=== PATIENT | female | born 1980 | race American Indian/Alaskan Native ===

== ENCOUNTER 2020-04-01 16:10 | Emergency (ER) | payer SELFPAY ==
[2020-04-01 18:31] VITALS: BP 123/64
--- NOTE | 2020-04-01 19:31 | Emergency Department Report ---
Chief Complaint: Upper Respiratory Infection Stated Complaint: CHEST PRESSURE/COUGH Time Seen by Provider: 04/01/20 19:26 - HPI History of Present Illness: Patient is a 39-year-old female presents emergency room with complaints of a dry cough that began 2 days ago. She states that she has chest discomfort after frequent coughing. She denies any nausea, vomiting, diarrhea, fever, sore throat, ear pain, shortness of breath, pleuritic chest pain. 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 She denies any recent travel. No past medical history. No allergies to medications. Vitals are normal On exam: Non toxic appearing, no acute distress atraumatic, normocephalic normal appearance of the eyes, PERRL, EOMI, no periorbital edema or ecchymosis moist mucus membranes, normal oropharynx, normal TMs and canals bilaterally regular heart rate and rhythm, no gallops, no rubs, no murmurs breath sounds are clear bilaterally, no w/r/r, no stridor, no respiratory distress, no accessory muscle use A&O x4, no focal neuro deficit skin is warm, dry, intact Patient is presenting to the emergency room for viral URI symptoms that have only been going on for 2 days She has not taken anything for her symptoms Breath sounds are clear bilaterally, no wheezing, no rales, no rhonchi Her vitals are normal No clinical signs of bacterial pneumonia or bacterial bronchitis She has no clinical signs of dehydration Patient is presenting with the symptoms during a COVID-19 pandemic, discussed COVID-19 with patient, discussed strict return precautions, discussed outpatient testing, discussed self quarantine Discussed supportive care and symptomatic treatment with patient Patient given appropriate resources discussed very strict return precautions Medical screening examination performed and there is no threat to life or limb at this time - Exam Vital Signs: Vital Signs 04/01/20 18:30 Temperature 98.2 F Pulse Rate 66 Respiratory 22 Rate Blood Pressure 123/64 [Right] O2 Sat by Pulse 100 Oximetry MSE screening note: Focused history and physical exam performed. Due to findings the following was ordered: ED Disposition for MSE Clinical Impression: Viral URI with cough Disposition: MED SCREENING EXAM-LEFT Is pt being admited?: No Does the pt Need Aspirin: No Condition: Stable Instructions: Viral Respiratory Infection, [id number]-Ohrf, COVID-19 Additional Instructions: Please increase your fluid intake over the next several days. May take Tylenol as needed for fever or body aches. May take jxjj-jks-wjafyyy cold symptom relief medication such as Mucinex or TheraFlu. Follow-up with a primary care doctor for reexamination. Return to emergency room immediately for any new or worsening symptoms including but not limited to difficulty breathing, shortness of breath, severe chest pain, unable to tolerate by mouth intake, etc. Please self quarantine for 2 weeks from the onset of your symptoms. Please do not go out in public. If you are around others at home please wear a mask. If you need to cough or sneeze please do so in a napkin and immediately throw it away and immediately wash your hands. Wash your hands frequently. Wipe everything down. Recommend for you to get COVID-19 testing, may have this done at primary care doctor, health department, [facility] testing center. Referrals: KHALIDA FRENCH MD [Staff Physician] - 2-3 Days [facility] [Provider Group] - 2-3 Days Forms: Work/School Release Form(ED) Time of Disposition: 19:30 Print Language: TURKISH
== END 2020-04-01 20:16 | disposition left against medical advice (07) ==
LOC: ED 16:10
DX: R05 Cough (principal); Z53.21 Procedure and treatment not carried out due to patient leaving prior to being seen by health care provider

== ENCOUNTER 2020-11-10 08:50 | Emergency (ER) | payer MEDICAID ==
[2020-11-10 10:05] LABS: Basophils # (Auto) 0.1 K/mm3 (0.0-0.1); Basophils % (Auto) 0.5 % (0.0-1.8); Eosinophils # (Auto) 0.1 K/mm3 (0.0-0.4); Eosinophils % (Auto) 0.5 % (0.0-4.3); Hematocrit 32.4 % (30.3-42.9); Hemoglobin 10.3 gm/dl (10.1-14.3); Lymphocytes # (Auto) 2.4 K/mm3 (1.2-5.4); Lymphocytes % (Auto) 17.5 % (13.4-35.0); Mean Corpuscular HGB Conc 32 % (30-34); Mean Corpuscular Volume 72 fl (79-97); Monocytes # (Auto) 1.2 K/mm3 (0.0-0.8); Platelet Count 280 K/mm3 (140-440); Red Blood Count 4.49 M/mm3 (3.65-5.03)
[2020-11-10 10:15] LABS: INR 1.07 (0.87-1.13)
[2020-11-10 10:16] LABS: Partial Thromboplastin Time 34.7 Sec. (24.2-36.6); Red Cell Distribution Width 20.2 % (13.2-15.2)
[2020-11-10 10:24] VITALS: BP 133/71
--- NOTE | 2020-11-10 10:25 | Emergency Department Report ---
ED HPI - General Chief complaint: Vaginal Bleeding Stated complaint: 9 WEEKS / BLEEDING Time Seen by Provider: 11/10/20 09:40 Source: patient Mode of arrival: Ambulatory Limitations: No Limitations - History of Present Illness Initial comments: This is a 40-year-old female nontoxic, well nourished in appearance, no acute signs of distress presents to the ED with c/o of vaginal bleeding x1 day. Patient stated yesterday she noticed some spotting this morning x3 occasions and primarily only when she wipes after the restroom. Patient denies any abdominal or pelvic pain. Patient denies any vaginal discharge or foul odor. Patient denies any nausea, vomiting, chest pain, shortness of breathe, fever, chills, headache, stiff neck, numbness, tingling. Patient denies any urinary symptoms. Patient denies any allergies or PMH. -: days(s) Severity scale (0 -10): 0 Improves with: none Worsens with: none Associated symptoms: vaginal discharge. denies: nausea/vomiting, vaginal bleeding, abdominal pain, dysuria, headache, vision changes, malaise, dysparuenia, rash, seizure, shortness of breath, syncope, weakness Vaginal bleeding: light :: Yes Number of weeks : 9 Pre-leigh ann care: none - Related Data Previous Rx's Medication Instructions Recorded Last Taken Type 21/Iron Fu/Folic Acid 1 each PO DAILY #30 tablet 11/10/20 Unknown Rx [ Complete Caplet] Allergies Allergy/AdvReac Type Severity Reaction Status Date / Time No Known Allergies Allergy Verified 11/10/20 09:05 ED Review of Systems ROS: Stated complaint: 9 WEEKS / BLEEDING Other details as noted in HPI Comment: All other systems reviewed and negative Constitutional: denies: chills, fever Eyes: denies: eye pain, eye discharge, vision change ENT: denies: ear pain, throat pain Respiratory: denies: cough, shortness of breath, wheezing Cardiovascular: denies: chest pain, palpitations Endocrine: no symptoms reported Gastrointestinal: denies: abdominal pain, nausea, diarrhea Genitourinary: abnormal menses. denies: urgency, dysuria, frequency, hematuria, discharge, dyspareunia Musculoskeletal: denies: back pain, joint swelling, arthralgia Skin: denies: rash, lesions Neurological: denies: headache, weakness, paresthesias Psychiatric: denies: anxiety, depression Hematological/Lymphatic: denies: easy bleeding, easy bruising ED Past Medical Hx - Past Medical History Previous Medical History?: No - Surgical History Additional Surgical History: C SECTION - Social History Smoking Status: Never Smoker Substance Use Type: None - Medications Home Medications: Home Medications Medication Instructions Recorded Confirmed Last Taken Type 21/Iron Fu/Folic Acid 1 each PO DAILY #30 tablet 11/10/20 Unknown Rx [ Complete Caplet] ED Physical Exam - General Limitations: No Limitations General appearance: alert, in no apparent distress - Head Head exam: Present: atraumatic, normocephalic - Eye Eye exam: Present: normal appearance - Neck Neck exam: Present: normal inspection, full ROM. Absent: lymphadenopathy - Respiratory Respiratory exam: Absent: respiratory distress - Cardiovascular Cardiovascular Exam: Present: regular rate - GI/Abdominal GI/Abdominal exam: Present: soft, normal bowel sounds. Absent: distended, tenderness, guarding, rebound, rigid, diminished bowel sounds - Extremities Exam Extremities exam: Present: full ROM - Back Exam Back exam: Present: normal inspection, full ROM. Absent: tenderness, CVA tenderness (R), CVA tenderness (L), muscle spasm, paraspinal tenderness, vertebral tenderness, rash noted - Neurological Exam Neurological exam: Present: alert, oriented X3, normal gait - Psychiatric Psychiatric exam: Present: normal affect, normal mood - Skin Skin exam: Present: warm, dry, intact, normal color. Absent: rash ED Course Vital Signs 11/10/20 09:10 Temperature 98.2 F Pulse Rate 77 Respiratory 20 Rate Blood Pressure 133/71 O2 Sat by Pulse 97 Oximetry Vital Signs 11/10/20 09:10 Temperature 98.2 F Pulse Rate 77 Respiratory 20 Rate Blood Pressure 133/71 O2 Sat by Pulse 97 Oximetry - Reevaluation(s) Reevaluation #1: 11/10/20 10:25 Patient is speaking in full sentences with no signs of distress noted. ED Medical Decision Making - Lab Data Result diagrams: 11/10/20 09:47 Lab Results 11/10/20 11/10/20 11/10/20 Range/Units 09:47 09:47 09:47 WBC 13.6 H (4.5-11.0) K/mm3 RBC 4.49 (3.65-5.03) M/mm3 Hgb 10.3 (10.1-14.3) gm/dl Hct 32.4 (30.3-42.9) % MCV 72 L (79-97) fl MCH 23 L (28-32) pg MCHC 32 (30-34) % RDW 20.2 H (13.2-15.2) % Plt Count 280 (140-440) K/mm3 Lymph % (Auto) 17.5 (13.4-35.0) % [place] % (Auto) 9.0 H (0.0-7.3) % Eos % (Auto) 0.5 (0.0-4.3) % Baso % (Auto) 0.5 (0.0-1.8) % Lymph # (Auto) 2.4 (1.2-5.4) K/mm3 [place] # (Auto) 1.2 H (0.0-0.8) K/mm3 Eos # (Auto) 0.1 (0.0-0.4) K/mm3 Baso # (Auto) 0.1 (0.0-0.1) K/mm3 Seg Neutrophils % 72.5 H (40.0-70.0) % Seg Neutrophils # 9.8 H (1.8-7.7) K/mm3 PT 14.4 (12.2-14.9) Sec. INR 1.07 (0.87-1.13) APTT 34.7 (24.2-36.6) Sec. HCG, Quant 10541 H (0-4) mIU/mL Urine Color (Yellow) Urine Turbidity (Clear) Urine pH (5.0-7.0) Ur Specific [place] (1.003-1.030) Urine Protein (Negative) mg/dL Urine Glucose (UA) (Negative) mg/dL Urine Ketones (Negative) mg/dL Urine Blood (Negative) Urine Nitrite (Negative) Urine Bilirubin (Negative) Urine Urobilinogen (<2.0) mg/dL Ur Leukocyte Esterase (Negative) Urine WBC (Auto) (0.0-6.0) /HPF Urine RBC (Auto) (0.0-6.0) /HPF U Epithel Cells (Auto) (0-13.0) /HPF Urine Bacteria (Auto) (Negative) /HPF Blood Type Antibody Screen Antibody Identification Ord Rhogam Gestat Weeks WEEKS 07/11/21 07/11/21 Range/Units 09:47 11:32 WBC (4.5-11.0) K/mm3 RBC (3.65-5.03) M/mm3 Hgb (10.1-14.3) gm/dl Hct (30.3-42.9) % MCV (79-97) fl MCH (28-32) pg MCHC (30-34) % RDW (13.2-15.2) % Plt Count (140-440) K/mm3 Lymph % (Auto) (13.4-35.0) % [place] % (Auto) (0.0-7.3) % Eos % (Auto) (0.0-4.3) % Baso % (Auto) (0.0-1.8) % Lymph # (Auto) (1.2-5.4) K/mm3 [place] # (Auto) (0.0-0.8) K/mm3 Eos # (Auto) (0.0-0.4) K/mm3 Baso # (Auto) (0.0-0.1) K/mm3 Seg Neutrophils % (40.0-70.0) % Seg Neutrophils # (1.8-7.7) K/mm3 PT (12.2-14.9) Sec. INR (0.87-1.13) APTT (24.2-36.6) Sec. HCG, Quant (0-4) mIU/mL Urine Color Yellow (Yellow) Urine Turbidity Clear (Clear) Urine pH 6.0 (5.0-7.0) Ur Specific [place] 1.013 (1.003-1.030) Urine Protein <15 mg/dl (Negative) mg/dL Urine Glucose (UA) Neg (Negative) mg/dL Urine Ketones Tr (Negative) mg/dL Urine Blood Mod (Negative) Urine Nitrite Neg (Negative) Urine Bilirubin Neg (Negative) Urine Urobilinogen < 2.0 (<2.0) mg/dL Ur Leukocyte Esterase Lg (Negative) Urine WBC (Auto) 6.0 (0.0-6.0) /HPF Urine RBC (Auto) 2.0 (0.0-6.0) /HPF U Epithel Cells (Auto) 9.0 (0-13.0) /HPF Urine Bacteria (Auto) 1+ (Negative) /HPF Blood Type O NEGATIVE Antibody Screen Positive Antibody Identification Anti-D (Actively Aquired) Ord Rhogam Gestat Weeks <11 WEEKS - Radiology Data [facility] [address] [place] [address] Ultrasound Report Signed Patient: PAULINA VELASCO MR#: [id number] : 1980 Acct:[id number] Age/Sex: 40 / F ADM Date: 11/10/20 Loc: ED Attending Dr: Ordering Physician: KAREN WATTERS NP Date of Service: 11/10/20 Procedure(s): US OB <= 14 weeks fetus Accession Number(s): [id number] cc: KAREN WATTERS NP Pelvic Ultrasound HISTORY: vaginal bleeding. TECHNIQUE: Grayscale and color imaging performed. COMPARISON: None FINDINGS: Uterus measures 10.7 x 6.0 x 6.2 cm. There is an intrauterine gestational sac a small yolk sac and pole. [place]-rump length is 16 mm which corresponds with an EGA of 8 weeks 0 days and delivery date of 06/22/2021. heart rate is 160 bpm. Left ovary is not visualized. Right ovary contains a small likely functional cyst measuring 8 mm. No significant pelvic free fluid. IMPRESSION: 1. Single viable intrauterine gestation as above. 2. Nonvisualization of the left ovary. Signer Name: Delvin Julien MD Signed: 11/10/2020 1:04 PM Workstation Name: [id number] Transcribed By: Dictated By: Delvin Julien MD Electronically Authenticated By: Delvin Julien MD Signed Date/Time: 11/10/20 1304 DD/ 1303 TD/TT: - Medical Decision Making This is a 40-year-old female presents with threatened miscarriage. Patient is stable and was examined by me. Normal abdominal exam. US OB obtained and dictated by the radiologist. Ua obtained. Quantative serum test obtained. Patient notified of the US report with no questions noted by the patient. Patient was instructed f/u with [facility] in 3-5 days. RH factor negative and received rhogam. Labs within normal limits. At time of discharge, the patient does not seem toxic or ill in appearance. No acute signs of distress noted. Patient agrees to discharge treatment plan of care. No further questions noted by the patient. Critical care attestation.: If time is entered above; I have spent that time in minutes in the direct care of this critically ill patient, excluding procedure time. ED Disposition Clinical Impression: Threatened miscarriage, Need for rhogam due to Rh negative mother Disposition: DC-01 TO HOME OR SELFCARE Is pt being admited?: No Does the pt Need Aspirin: No Condition: Stable Instructions: Threatened Miscarriage Additional Instructions: Follow-up with a OBGYN doctor in 3-5 days or if symptoms worsen and continue return to emergency room as soon as possible. Prescriptions: 21/Iron Fu/Folic Acid [ Complete Caplet] 1 each PO DAILY #30 tablet Referrals: PRIMARY CAREMD [Primary Care Provider] - 3-5 Days [facility] [Provider Group] - 3-5 Days [facility] [Provider Group] - 3-5 Days Forms: Work/School Release Form(ED) Time of Disposition: 13:13
[2020-11-10 12:25] LABS: Bacteria,Urine 1+ /HPF (Negative); Bilirubin,Urine NEG (Negative); Blood,Urine MOD (Negative); Color,Urine Yellow (Yellow); Protein,Urine <15 mg/dL mg/dL (Negative); Urobilinogen,Urine < 2.0 mg/dL (<2.0)
--- NOTE | 2020-11-10 13:09 | Ultrasound Report ---
Pelvic Ultrasound HISTORY: vaginal bleeding. TECHNIQUE: Grayscale and color imaging performed. COMPARISON: None FINDINGS: Uterus measures 10.7 x 6.0 x 6.2 cm. There is an intrauterine gestational sac a small yolk sac and pole. [place]-rump length is 16 mm which corresponds with an EGA of 8 weeks 0 days and [place] date of 06/22/2021. heart rate is 160 bpm. Left ovary is not visualized. Right ovary contains a small likely functional cyst measuring 8 mm. No significant pelvic free fluid. IMPRESSION: 1. Single viable intrauterine gestation as above. 2. Nonvisualization of the left ovary. Signer Name: Delvin Julien MD Signed: 11/10/2020 1:04 PM Workstation Name: [id number]
== END 2020-11-10 13:45 | disposition home or self-care (01) ==
LOC: ED 08:50
DX: O20.0 Threatened abortion (principal); O26.891 Other specified pregnancy related conditions, first trimester; Z98.890 Other specified postprocedural states; Z3A.09 9 weeks gestation of pregnancy; Z67.41 Type O blood, Rh negative
CPT/HCPCS: 36415; 76801; 81001; 84702; 85025; 85610; 85730; 86850; 86870; 86900; 86901; 96372; 99284; J2790; 36430

== ENCOUNTER 2021-03-26 08:46 | Outpatient (CLI) | payer MEDICAID | END 2021-03-26 08:47 | disposition home or self-care (01) | LOC: LAB 08:46 | PROVIDERS: ATTEND Obstetrics & Gynecology | DX: O09.523 Supervision of elderly multigravida, third trimester (principal); Z3A.29 29 weeks gestation of pregnancy | CPT/HCPCS: 86850; 86870; 86900; 86901; 96372; J2790 ==

== ENCOUNTER 2021-06-02 10:30 | Outpatient (CLI) | payer MEDICAID ==
[2021-06-02] MEDS ORDERED: LACTATED RINGERS 500 ML IV ONE (11:00)
[2021-06-02 12:21] LABS: Hematocrit 30.7 % (30.3-42.9); Hemoglobin 9.6 gm/dl (10.1-14.3); Mean Corpuscular HGB Conc 31 % (30-34); Mean Corpuscular Volume 74 fl (79-97); Platelet Count 206 K/mm3 (140-440); Red Blood Count 4.12 M/mm3 (3.65-5.03); Red Cell Distribution Width 18.1 % (13.2-15.2)
[2021-06-02 12:23] LABS: Bilirubin,Urine NEG (Negative); Blood,Urine NEG (Negative); Color,Urine Yellow (Yellow); Protein,Urine <15 mg/dL mg/dL (Negative)
[2021-06-02 12:32] LABS: RBC,Urine < 1.0 /HPF (0.0-6.0); WBC,Urine < 1.0 /HPF (0.0-6.0)
[2021-06-02] MEDS ORDERED: LACTATED RINGERS 1,000 ML IV ONE (12:42)
[2021-06-02 12:43] LABS: Alanine Aminotransferase 9 units/L (7-56); Uric Acid 5.2 mg/dL (3.5-7.6)
[2021-06-02] MEDS ORDERED: D5W/LACTATED RINGERS 1,000 ML IV SCH (13:00)
--- NOTE | 2021-06-02 13:28 | Ultrasound Report ---
ULTRASOUND OBSTETRIC LIMITED ULTRASOUND BIOPHYSICAL PROFILE INDICATION / CLINICAL INFORMATION: Evaluate well-being. COMPARISON: None available. FINDINGS: BREATHING MOVEMENT = 2 GROSS BODY MOVEMENT = 2 TONE = 2 QUALITATIVE AMNIOTIC FLUID VOLUME = 2 TOTAL BIOPHYSICAL SCORE = 8/8 AMNIOTIC FLUID INDEX (cm) = 11.1 PRESENTATION: Cephalic. HEART RATE (beats per minute): 132 ADDITIONAL FINDINGS: None. IMPRESSION: 1. Biophysical Score = 8/8 2. Normal amniotic fluid index of 11.1 cm. Signer Name: Cyrus Cao MD Signed: 06/02/2021 1:23 PM Workstation Name: [id number]
[2021-06-02 14:32] VITALS: BP 104/59
== END 2021-06-02 15:09 | disposition home or self-care (01) ==
LOC: TRG 10:30 → APU 10:31 → TRG 15:09
PROVIDERS: ATTEND Obstetrics & Gynecology
DX: O62.9 Abnormality of forces of labor, unspecified (principal); O26.893 Other specified pregnancy related conditions, third trimester; R10.9 Unspecified abdominal pain; Z3A.36 36 weeks gestation of pregnancy
CPT/HCPCS: 36415; 59025; 76815; 76819; 81001; 82565; 83615; 84450; 84460; 84550; 85027; 96360; 96361; J7121; Q0177; J7060

== ENCOUNTER 2021-06-08 02:54 | Outpatient (CLI) | payer MEDICAID ==
[2021-06-08 03:21] VITALS: BP 124/75
[2021-06-08 03:32] LABS: Bilirubin,Urine NEG (Negative); Blood,Urine NEG (Negative); Color,Urine Yellow (Yellow); Protein,Urine <15 mg/dL mg/dL (Negative); Urobilinogen,Urine < 2.0 mg/dL (<2.0)
[2021-06-08] MEDS ORDERED: LACTATED RINGERS 1,000 ML ONE (03:57)
[2021-06-08] MEDS ORDERED: LACTATED RINGERS 1,000 ML IV ONE (04:02)
[2021-06-08] MEDS ORDERED: TERBUTALINE 1 MG/1 ML INJ SUB-Q ONE (05:12)
[2021-06-08] MEDS ORDERED: MORPHINE 2 MG/1 ML INJ IV ONE (05:16)
[2021-06-08] MEDS ORDERED: TERBUTALINE 1 MG/1 ML INJ ONE (05:22)
[2021-06-08] MEDS ORDERED: MORPHINE 2 MG/1 ML INJ ONE (05:22)
== END 2021-06-08 05:48 | disposition home or self-care (01) ==
LOC: TRG 02:54 → APU 02:57 → TRG 05:48
PROVIDERS: ATTEND Obstetrics & Gynecology
DX: O09.893 Supervision of other high risk pregnancies, third trimester (principal); Z3A.37 37 weeks gestation of pregnancy
CPT/HCPCS: 81001; J7120